=== PATIENT | female | born 1975 ===

== ENCOUNTER 2018-02-09 17:49 | Emergency (ER) | payer OTHER ==
[2018-02-09 18:02] VITALS: BMI 29.5
[2018-02-09 18:38] VITALS: RESP 18
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
[2018-02-09 21:34] VITALS: BP 120/63; PULSE 82; TEMP 98.6; O2SAT 99
--- NOTE | 2018-02-10 12:48 | RAD ---
Date of service: 02/09/2018 PROCEDURE: Radiographs of the Lumbar Spine. HISTORY: back pain COMPARISON: No prior. FINDINGS: BONES: Normal alignment. No listhesis. No fracture. DISC SPACES: Unremarkable. OTHER FINDINGS: None. IMPRESSION: Unremarkable radiographs of the lumbar spine.
--- NOTE | 2018-02-10 12:49 | RAD ---
Date of service: 02/09/2018 PROCEDURE: Right Knee Radiographs. HISTORY: knee pain COMPARISON: None. FINDINGS: BONES: Normal. No fracture. JOINTS: Normal. No osteoarthritis. JOINT EFFUSION: None. OTHER FINDINGS: None. IMPRESSION: Normal radiographs of the right knee.
--- NOTE | 2018-02-10 12:50 | RAD ---
Date of service: 02/09/2018 PROCEDURE: Left Knee Radiographs. HISTORY: Pain. COMPARISON: None. FINDINGS: BONES: Normal. No fracture. JOINTS: Normal. No osteoarthritis. JOINT EFFUSION: None. OTHER FINDINGS: None. IMPRESSION: Normal radiographs of the left knee.
== END 2018-02-09 20:30 | disposition home or self-care (01) ==
LOC: MERGE 17:49 → ED 17:49
DX: M54.5 Low back pain (principal); M25.561 Pain in right knee; M25.562 Pain in left knee
CPT/HCPCS: 72110; 73562; 96372; 99285; J1885